=== PATIENT | male | born 1980 | race Caucasian/White ===

== ENCOUNTER 2017-06-24 10:11 | Inpatient (IN) | payer SELFPAY ==
[~2017-06-24] VITALS: Ht 180.3 cm; Wt 77.0 kg
[2017-06-24 10:13] VITALS: BP 133/80; PULSE 106; RESP 20; TEMP 98.9; O2SAT 100
[2017-06-24] MEDS ORDERED: LIDOCAINE HCL 1% 50 ML VIAL INFIL ONE (11:45)
--- NOTE | 2017-06-24 11:45 | PD ---
HPI Chief Complaint: Skin Problem Time Seen by Provider: 11:33 Travel History International Travel<30 days: No Contact w/Intl Traveler<30days: No Traveled to known affect area: No History of Present Illness HPI So 36-year-old man who presents to the emergency department complaining of pain redness and swelling his left arm.A small pimple there couple days ago, he tried to pull He thought it may be staph. Today's arm is 1 up in its erythematous red-hot swollen and very painful. History of staph infection that arm in the past. Denies any other medical problems. No other complaints. He did try to take some leftover antibiotics that he had, Keflex, as well as some pain medicine. History Past Medical History Medical History: Denies Significant Hx Social History Tobacco Use: No Allergies-Medications (Allergen,Severity, Reaction): Coded Allergies: No Known Allergies (Verified Allergy, Unknown, 06/24/17) Review of Systems Except as stated in HPI: all other systems reviewed are Neg Physical Exam Narrative GENERAL: Well-appearing 36 year-old man, appears uncomfortable nontoxic. SKIN: Focused skin assessment warm/dry. CARDIOVASCULAR: Regular rate and rhythm. No murmur appreciated. RESPIRATORY: No accessory muscle use. Clear to auscultation. Breath sounds equal bilaterally. GASTROINTESTINAL: Abdomen soft, non-tender, nondistended. Hepatic and splenic margins not palpable. MUSCULOSKELETAL: Significant erythema and swelling with induration in the left arm especially about the medial aspect of the elbow and into the distal brachium. There is an area of fluctuance in the central area. There is no purulent drainage. Data Data Last Documented VS Vital Signs Date Time Temp Pulse Resp B/P (MAP) Pulse Ox O2 Delivery O2 Flow Rate FiO2 06/24/17 12:36 18 06/24/17 10:13 98.9 106 133/80 (97) 100 Room Air Orders Orders Wound Culture And Gram Stain (06/24/17 11:39) Ed Poc Ultrasound (06/24/17 ) Lidocaine 1% Inj (50 Ml) (Xylocaine 1% I (06/24/17 11:45) Fentanyl Inj (Fentanyl Inj) (06/24/17 11:39) Complete Blood Count With Diff (06/24/17 12:18) Comprehensive Metabolic Panel (06/24/17 12:18) Iv Access Insert/Monitor (06/24/17 12:18) Hydromorphone Pf Inj (Dilaudid Pf Inj) (06/24/17 12:30) Vancomycin Inj (Vancomycin Inj) (06/24/17 12:30) Levofloxacin 750 Mg Premix Inj (Levaquin (06/24/17 12:30) Doxycycline Inj (Vibramycin Inj) (06/24/17 12:30) Admit Order (Ed Use Only) (06/24/17 ) Vital Signs (Adult) Q4H (06/24/17 13:55) Diet Heart Healthy (06/24/17 Lunch) Activity Oob With Assistance (06/24/17 13:55) Notify Dr: Other (06/24/17 13:55) Labs Laboratory Tests Test 06/24/17 12:30 White Blood Count 22.2 TH/MM3 Red Blood Count 4.19 MIL/MM3 Hemoglobin 12.5 GM/DL Hematocrit 37.2 % Mean Corpuscular Volume 88.7 FL Mean Corpuscular Hemoglobin 29.9 PG Mean Corpuscular Hemoglobin Concent 33.7 % Red Cell Distribution Width 13.7 % Platelet Count 422 TH/MM3 Mean Platelet Volume 8.6 FL Neutrophils (%) (Auto) 79.1 % Lymphocytes (%) (Auto) 7.3 % Monocytes (%) (Auto) 11.5 % Eosinophils (%) (Auto) 1.7 % Basophils (%) (Auto) 0.4 % Neutrophils # (Auto) 17.5 TH/MM3 Lymphocytes # (Auto) 1.6 TH/MM3 Monocytes # (Auto) 2.6 TH/MM3 Eosinophils # (Auto) 0.4 TH/MM3 Basophils # (Auto) 0.1 TH/MM3 CBC Comment AUTO DIFF Differential Total Cells Counted 100 Neutrophils % (Manual) 67 % Band Neutrophils % 14 % Lymphocytes % 8 % Monocytes % 9 % Eosinophils % 2 % Neutrophils # (Manual) 18.0 TH/MM3 Differential Comment FINAL DIFF MANUAL Platelet Estimate HIGH Platelet Morphology Comment NORMAL Blood Urea Nitrogen 7 MG/DL Creatinine 0.72 MG/DL Random Glucose 82 MG/DL Total Protein 7.7 GM/DL Albumin 2.9 GM/DL Calcium Level 8.9 MG/DL Alkaline Phosphatase 153 U/L Aspartate Amino Transf (AST/SGOT) 19 U/L Alanine Aminotransferase (ALT/SGPT) 23 U/L Total Bilirubin 0.7 MG/DL Sodium Level 134 MEQ/L Potassium Level 3.4 MEQ/L Chloride Level 99 MEQ/L Carbon Dioxide Level 26.2 MEQ/L Anion Gap 9 MEQ/L Estimat Glomerular Filtration Rate 123 ML/MIN [facility] Medical Decision Making Medical Screen Exam Complete: Yes Emergency Medical Condition: Yes Interpretation(s) LABS: CBC remarkable for leukocytosis. Differential Diagnosis Abscess, DVT, cellulitis, other Narrative Course Medical decision making 36-year-old man presents with cellulitis and abscess to the left arm. We'll confirm drainable fluid collection, I&D at the bedside, antibiotics and pain medication. Procedures Procedure Narrative INCISION AND DRAINAGE OF ABSCESS: The area was prepped and was sterilely draped. A subcutaneous wheal of % Xylocaine 1 with a total number 5 mL was used to anesthetize the area. The area was properly anesthetized. A number 11 scalpel was used to make a 3-cm incision across the area of the abscess. Copious malodorous drainage was expressed. Cultures were obtained. The abscess was drained an irrigated with normal saline. Half-inch packing was placed. Diagnosis Primary Impression: Abscess Admitting Information Admitting Physician Requests: Admit Charbel Gonzalez MD Jun 24, 2017 11:44
[2017-06-24] MEDS ORDERED: VANCOMYCIN INJ 1,500 MG in SODIUM CHLORID 0.9% 500 ML INJ 500 ML IV ONE (12:30)
[2017-06-24] MEDS ORDERED: HYDROmorphone HCL PF 1 MG/ML VIAL IV PUSH ONE (12:30)
[2017-06-24] MEDS ORDERED: DOXYCYCLINE INJ 100 MG in SODIUM CHLORIDE 0.9% INJ 100 ML IV ONE (12:30)
[2017-06-24] MEDS ORDERED: LEVOFLOXACIN 750 MG PREMIX INJ 150 ML IV ONE (12:30)
[2017-06-24 13:22] LABS: AUTOMATED NEUTROPHIL # 17.5 TH/MM3 (1.8-7.7); BASOPHIL # 0.1 TH/MM3 (0-0.2); BASOPHIL % 0.4 % (0.0-2.0); EOSINOPHIL # 0.4 TH/MM3 (0-0.4); EOSINOPHIL % 1.7 % (0.0-4.0); HEMATOCRIT 37.2 % (39.0-51.0); LYMPH % 7.3 % (9.0-44.0); LYMPHOCYTE # 1.6 TH/MM3 (1.0-4.8); MEAN CELL VOLUME 88.7 FL (80.0-100.0); MEAN CORPUSCULAR HEMOGLOBIN 29.9 PG (27.0-34.0); MEAN CORPUSCULAR HGB CONC 33.7 % (32.0-36.0); MONO % 11.5 % (0.0-8.0); NEUT % 79.1 % (16.0-70.0); PLATELET COUNT 422 TH/MM3 (150-450); RED BLOOD COUNT 4.19 MIL/MM3 (4.50-5.90); RED CELL DISTRIBUTION WIDTH 13.7 % (11.6-17.2); WHITE BLOOD COUNT 22.2 TH/MM3 (4.0-11.0)
[2017-06-24 13:30] LABS: HEMO FLAGS AUTO DIFF
[2017-06-24 13:45] LABS: ALT (GPT) 23 U/L (12-78); ANION GAP 9 MEQ/L (5-15); AST (GOT) 19 U/L (15-37); BICARBONATE 26.2 MEQ/L (21.0-32.0); BLOOD UREA NITROGEN 7 MG/DL (7-18); CHLORIDE 99 MEQ/L (98-107); GLOMERULAR FILTRATION RATE 123 ML/MIN (>89); POTASSIUM 3.4 MEQ/L (3.5-5.1); SODIUM (NA) 134 MEQ/L (136-145)
[2017-06-24 13:47] LABS: ALKALINE PHOSPHATASE 153 U/L (45-117); TOTAL BILIRUBIN ADULT 0.7 MG/DL (0.2-1.0)
[2017-06-24 13:52] LABS: BANDS 14 % (0-6); EOSINOPHILS 2 % (0-4); POLYS (SEG NEUTROPHILS) 67 % (16-70); WBC DIFF SAMPLE 100
[2017-06-24 13:53] LABS: PLATELET ESTIMATE SMEAR HIGH (NORMAL)
[2017-06-24 13:55] LABS: PLATELET MORPHOLOGY NORMAL (NORMAL); SCAN/DIFF FINAL DIFF MANUAL
[2017-06-24 13:57] VITALS: BP 143/74; PULSE 101; RESP 18; O2SAT 97
[2017-06-24] MEDS ORDERED: MAGNESIUM HYDROXIDE SUSP 30 ML CUP PO PRN (14:00)
[2017-06-24] MEDS ORDERED: ONDANSETRON HCL 4 MG/2 ML VIAL IVP PRN (14:00)
[2017-06-24] MEDS ORDERED: ACETAMINOPHEN/HYDROcodone 325 MG/10 MG TAB PO PRN (14:00)
[2017-06-24] MEDS ORDERED: NALOXONE HCL 0.4 MG/ML AMP IV PUSH PRN (14:00)
[2017-06-24] MEDS ORDERED: ACETAMINOPHEN/HYDROcodone 325 MG/5 MG TAB PO PRN (14:00)
[2017-06-24] MEDS ORDERED: SODIUM CHLORIDE 0.9% FLUSH 10 ML FLUSH IV FLUSH PRN (14:00)
[2017-06-24] MEDS: SODIUM CHLOR 0.9% 1000 ML INJ 1,000 ML IV SCH ×2 (15:39→21:47)
[2017-06-24] MEDS: ENOXAPARIN SODIUM 40 MG/0.4 ML SYRINGE SQ SCH (15:43)
[2017-06-24] MEDS ORDERED: oxyCODONE/ACETAMINOPHEN 5 MG/325 MG TAB PO PRN (15:45)
--- NOTE | 2017-06-24 15:47 | HHI.HP ---
[facility] No Primary Care Physician Admission Diagnosis cellulitis Diagnoses: (1) Abscess Travel History International Travel<30 Days: No Contact w/Intl Traveler <30 Da: No Traveled to Known Affected Are: No History of Present Illness Mr. Nickerson is a 36-year-old male. She came in secondary to left arm abscess. He says that he's been working with his grandparents to fix her home [place] and he's been working in the water to build a retaining wall. He noticed a pimple which developed on his left arm about 4 days ago. 3 days ago he tried to drain it with a needle at home. Ever since then has been accelerating in regards to heat, erythema, and swelling. She noticed swelling down to his hand this morning so he came into the emergency department. In the emergency department he had an I&D performed which drained greater than one cup of purulent material. He feels like she might still have a axillary abscess. No IV drug abuse presently and no history of IV drug abuse. Review of Systems Constitutional: DENIES: Fever, Chills, Night Sweats Eyes: DENIES: Blurred vision, Diplopia, Eye inflammation, Eye pain Ears, nose, mouth, throat: DENIES: Tinnitus, Hearing loss, Vertigo, Nasal discharge Respiratory: DENIES: Apneas, Cough, Wheezing, Shortness of breath Cardiovascular: DENIES: Chest pain, Palpitations, Syncope Gastrointestinal: DENIES: Abdominal pain, Black stools, Bloody stools Genitourinary: DENIES: Sexual dysfunction, Urinary frequency, Urinary incontinence Musculoskeletal: COMPLAINS OF: Joint pain, Stiffness Integumentary: COMPLAINS OF: Abnormal pigmentation Hematologic/lymphatic: COMPLAINS OF: Lymphadenopathy, DENIES: Bruising Immunologic/allergic: DENIES: Eczema, Urticaria Neurologic: DENIES: Abnormal gait, Headache, Paresthesias Psychiatric: DENIES: Anxiety, Confusion, Hallucinations Past Family Social History Past Medical History Prior history of staph infection (small, delt with at home) History of head injury, basal injury, 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 HEAD: Normocephalic. EYES: No scleral icterus. No injection or drainage. NECK: Supple, trachea midline. No JVD or lymphadenopathy. CARDIOVASCULAR: Regular rate and rhythm without murmurs, gallops, or rubs. RESPIRATORY: Breath sounds equal bilaterally. No accessory muscle use. GASTROINTESTINAL: Abdomen soft, non-tender, nondistended. MUSCULOSKELETAL: No cyanosis, or edema. His left arm is bandaged now, but has significant edema and induration and edema around his elbow (status post I&D with biceps laceration) BACK: Nontender without obvious deformity. No CVA tenderness. Laboratory Laboratory Tests Test 06/24/17 12:30 White Blood Count 22.2 Red Blood Count 4.19 Hemoglobin 12.5 Hematocrit 37.2 Mean Corpuscular Volume 88.7 Mean Corpuscular Hemoglobin 29.9 Mean Corpuscular Hemoglobin Concent 33.7 Red Cell Distribution Width 13.7 Platelet Count 422 Mean Platelet Volume 8.6 Neutrophils (%) (Auto) 79.1 Lymphocytes (%) (Auto) 7.3 Monocytes (%) (Auto) 11.5 Eosinophils (%) (Auto) 1.7 Basophils (%) (Auto) 0.4 Neutrophils # (Auto) 17.5 Lymphocytes # (Auto) 1.6 Monocytes # (Auto) 2.6 Eosinophils # (Auto) 0.4 Basophils # (Auto) 0.1 CBC Comment AUTO DIFF Differential Total Cells Counted 100 Neutrophils % (Manual) 67 Band Neutrophils % 14 Lymphocytes % 8 Monocytes % 9 Eosinophils % 2 Neutrophils # (Manual) 18.0 Differential Comment FINAL DIFF MANUAL Platelet Estimate HIGH Platelet Morphology Comment NORMAL Blood Urea Nitrogen 7 Creatinine 0.72 Random Glucose 82 Total Protein 7.7 Albumin 2.9 Calcium Level 8.9 Alkaline Phosphatase 153 Aspartate Amino Transf (AST/SGOT) 19 Alanine Aminotransferase (ALT/SGPT) 23 Total Bilirubin 0.7 Sodium Level 134 Potassium Level 3.4 Chloride Level 99 Carbon Dioxide Level 26.2 Anion Gap 9 Estimat Glomerular Filtration Rate 123 Date/Time Source Procedure Growth Status 06/24/17 12:30 Wound Arm Gram Stain Pending Received 06/24/17 12:30 Wound Arm Wound Culture Pending Received Result Diagram: 06/24/17 1230 06/24/17 1230 Septic Shock Reassessment Heart: Regular rate and rhythm Lungs: Clear Skin: Warm Peripheral Pulses: Bounding Right Radial Bounding Left Radial Bounding Right Posterior Tibial Bounding Left Posterior Tibial Capillary Refill: Brisk Caprini VTE Risk Assessment Caprini VTE Risk Assessment: No/Low Risk (score <= 1) Caprini Risk Assessment Model Point Value = 1 Point Value = 2 Point Value = 3 Point Value = 5 Age 41-60 Minor surgery BMI > 25 kg/m2 Swollen legs Varicose veins or History of unexplained or recurrent spontaneous Oral contraceptives or hormone replacement Sepsis (< 1 month) Serious lung disease, including pneumonia (< 1 month) Abnormal pulmonary function Acute myocardial infarction Congestive heart failure (< 1 month) History of inflammatory bowel disease Medical patient at bed rest Age 61-74 Arthroscopic surgery Major open surgery (> 45 min) Laparoscopic surgery (> 45 min) Malignancy Confined to bed (> 72 hours) Immobilizing plaster cast Central venous access Age >= 75 History of VTE Family history of VTE Factor V Leiden Prothrombin [id number] Lupus anticoagulant Anticardiolipin antibodies Elevated serum homocysteine Heparin-induced thrombocytopenia Other congenital or acquired thrombophilia Stroke (< 1 month) Elective arthroplasty Hip, pelvis, or leg fracture Acute spinal cord injury (< 1 month) Prophylaxis Regimen Total Risk Factor Score Risk Level Prophylaxis Regimen 0-1 Low Early ambulation 2 Moderate Order ONE of the following: *Sequential Compression Device (SCD) *Heparin 5000 units SQ BID 3-4 Higher Order ONE of the following medications: *Heparin 5000 units SQ TID *Enoxaparin/Lovenox 40 mg SQ daily (WT < 150 kg, CrCl > 30 mL/min) *Enoxaparin/Lovenox 30 mg SQ daily (WT < 150 kg, CrCl > 10-29 mL/min) *Enoxaparin/Lovenox 30 mg SQ BID (WT < 150 kg, CrCl > 30 mL/min) AND/OR *Sequential Compression Device (SCD) 5 or more Highest Order ONE of the following medications: *Heparin 5000 units SQ TID (Preferred with Epidurals) *Enoxaparin/Lovenox 40 mg SQ daily (WT < 150 kg, CrCl > 30 mL/min) *Enoxaparin/Lovenox 30 mg SQ daily (WT < 150 kg, CrCl > 10-29 mL/min) *Enoxaparin/Lovenox 30 mg SQ BID (WT < 150 kg, CrCl > 30 mL/min) AND *Sequential Compression Device (SCD) Assessment and Plan Problem List: (1) Abscess ICD Code: L02.91 - Cutaneous abscess, unspecified Status: Acute Assessment and Plan Assessment and Plan 36 year old male admitted with sepsis secondary to left arm abscess and cellulitis. Left Arm Abscess Left Arm Cellulitis Developed with prolonged exposure in salty muddy senior Risk for Vibrio as a cause Vancomycin Doxycycline Levaquin Probiotics ID consult Follow wound cultures Sepsis IV Hydration Follow on telemetry Follow CBC Monitor vitals Treat infection DVT Prophylaxis Lovenox Physician Certification 2 Midnight Certification Type: Admission for Inpatient Services Order for Inpatient Services The services are ordered in accordance with Medicare regulations or non- Medicare payer requirements, as applicable. In the case of services not specified as inpatient-only, they are appropriately provided as inpatient services in accordance with the 2-midnight benchmark. Estimated LOS (days): 2 days is the estimated time the patient will need to remain in the hospital, assuming treatment plan goals are met and no additional complications. Post-Hospital Plan: Home Harvey Price MD Jun 24, 2017 15:47
[2017-06-24] MEDS ORDERED: NICOTINE 21 MG/24 HR PATCH T-DERMAL ONE (16:00)
[2017-06-24 16:10] VITALS: BP 128/74
[2017-06-24] MEDS: oxyCODONE/ACETAMINOPHEN 10 MG/325 MG TAB PO PRN ×2 (16:12→20:06)
[2017-06-24 17:15] VITALS: BP 121/78; PULSE 101; RESP 19; TEMP 100.2; O2SAT 96
[2017-06-24] MEDS ORDERED: Vancomycin Consult Pharmacy 1 EA OTHER SCH (17:30)
[2017-06-24] MEDS: HYDROmorphone HCL PF 2 MG/ML VIAL IV PUSH PRN ×2 (17:36→21:46)
[2017-06-24 19:59] VITALS: PULSE 101
[2017-06-24 20:00] VITALS: BP 127/75; PULSE 97; RESP 18; TEMP 99.6; O2SAT 100
[2017-06-24] MEDS: SODIUM CHLORIDE 0.9% FLUSH 10 ML FLUSH IV FLUSH SCH (20:07)
[2017-06-24] MEDS: LACTOBACILLUS ACIDOPHILUS TAB PO SCH (20:07)
[2017-06-25] VITALS (7 sets, daily range): BP systolic 118–156; BP diastolic 62–93; PULSE 78–103; RESP 16–20; TEMP 97.7–99.4; O2SAT 94–100
[2017-06-25] MEDS: oxyCODONE/ACETAMINOPHEN 10 MG/325 MG TAB PO PRN ×6 (00:29→21:46)
[2017-06-25] MEDS: VANCOMYCIN INJ 1,000 MG in SODIUM CHLOR 0.9% 250 ML INJ 250 ML IV SCH ×4 (00:29→23:47)
[2017-06-25] MEDS: HYDROmorphone HCL PF 2 MG/ML VIAL IV PUSH PRN ×3 (01:50→14:36)
[2017-06-25] MEDS: DOXYCYCLINE INJ 200 MG in SODIUM CHLOR 0.9% 250 ML INJ 250 ML IV SCH ×2 (01:51→14:35)
[2017-06-25] MEDS ORDERED: KETOROLAC TROMETHAMINE 30 MG/ML (IVP) VIAL IV PUSH ONE (06:15)
[2017-06-25 08:27] LABS: BASOPHIL # 0.1 TH/MM3 (0-0.2); BASOPHIL % 0.5 % (0.0-2.0); EOSINOPHIL # 0.3 TH/MM3 (0-0.4); EOSINOPHIL % 2.2 % (0.0-4.0); HEMATOCRIT 29.4 % (39.0-51.0); HEMO FLAGS DIFF FINAL; LYMPH % 11.1 % (9.0-44.0); LYMPHOCYTE # 1.7 TH/MM3 (1.0-4.8); MEAN CELL VOLUME 88.9 FL (80.0-100.0); MEAN CORPUSCULAR HEMOGLOBIN 29.7 PG (27.0-34.0); MEAN CORPUSCULAR HGB CONC 33.4 % (32.0-36.0); NEUT % 76.2 % (16.0-70.0); PLATELET COUNT 341 TH/MM3 (150-450); RED BLOOD COUNT 3.31 MIL/MM3 (4.50-5.90); RED CELL DISTRIBUTION WIDTH 13.5 % (11.6-17.2); WHITE BLOOD COUNT 15.7 TH/MM3 (4.0-11.0)
--- NOTE | 2017-06-25 08:34 | HHI.PR ---
Subjective Remarks Had fever last night , also chills. Says swelling in the arm decreased some, has significant pain in his arm and underarm. Says dialudid doesn't help much and lasts just for 1.5 hrs. No n/v/d/c. Eating but not much. Objective Vitals Vital Signs Date Time Temp Pulse Resp B/P (MAP) Pulse Ox O2 Delivery O2 Flow Rate FiO2 06/25/17 04:00 99.4 87 18 137/75 (95) 100 06/25/17 00:48 98.3 96 18 156/93 (114) 94 06/24/17 20:00 99.6 97 18 127/75 (92) 100 06/24/17 19:59 101 06/24/17 17:30 18 06/24/17 17:15 100.2 101 19 121/78 (92) 96 06/24/17 16:10 82 18 128/74 (92) 98 06/24/17 14:00 18 06/24/17 13:57 101 18 143/74 (97) 97 Room Air 06/24/17 12:36 18 06/24/17 10:13 98.9 106 20 133/80 (97) 100 Room Air I/O 06/24/17 06/24/17 06/24/17 06/25/17 06/25/17 06/25/17 06:59 14:59 22:59 06:59 14:59 22:59 Intake Total 150 ml 1270 ml 830 ml Balance 150 ml 1270 ml 830 ml Intake IV Total 150 ml 1270 ml 830 ml # Voids 2 Result Diagram: 06/24/17 1230 06/24/17 1230 Objective Remarks GENERAL: 36 yo male, in bed, appears in some distress 2/2 pain in his left arm. CARDIOVASCULAR: Regular rate and rhythm without murmurs, gallops, or rubs. RESPIRATORY: Breath sounds equal bilaterally. No accessory muscle use. GASTROINTESTINAL: Abdomen soft, non-tender, nondistended. MUSCULOSKELETAL: No cyanosis, or edema LE. His left arm is bandaged now, edema and induration around his elbow imprpved, + axilar LAD (status post I&D with biceps laceration). BACK: Nontender without obvious deformity. No CVA tenderness. A/P Problem List: (1) Abscess ICD Code: L02.91 - Cutaneous abscess, unspecified Status: Acute Assessment and Plan 36 year old male admitted with sepsis secondary to left arm abscess and cellulitis. Left Arm Abscess Left Arm Cellulitis Developed with prolonged exposure in salty muddy senior Risk for Vibrio as a cause Vancomycin Doxycycline Levaquin Probiotics ID consulted and ff. Discussed with Dr Brooks ID specialist, will consult also ortho for evaluation Follow wound cultures Sepsis ( leukocytosis, tachycardia on admission, source cellulitis). Improving. IV Hydration Follow on telemetry Follow CBC Monitor vitals Treat infection Hyponatremia, mild. Corrected with IVF. Monitor Na Hypokalemia: replaced. Monitor and replace as need. DVT Prophylaxis Lovenox Discussed with the patient and the nurse. Triny Shepard MD Jun 25, 2017 08:34
[2017-06-25] MEDS: LACTOBACILLUS ACIDOPHILUS TAB PO SCH ×3 (08:47→17:38)
[2017-06-25] MEDS: NICOTINE 21 MG/24 HR PATCH T-DERMAL SCH (08:48)
[2017-06-25] MEDS: REMOVE OLD PATCH T-DERMAL SCH (08:48)
[2017-06-25] MEDS: SODIUM CHLORIDE 0.9% FLUSH 10 ML FLUSH IV FLUSH SCH ×2 (08:49→21:00)
[2017-06-25 08:57] LABS: ALT (GPT) 19 U/L (12-78); ANION GAP 8 MEQ/L (5-15); AST (GOT) 17 U/L (15-37); BICARBONATE 23.5 MEQ/L (21.0-32.0); BLOOD UREA NITROGEN 8 MG/DL (7-18); CHLORIDE 105 MEQ/L (98-107); GLOMERULAR FILTRATION RATE 161 ML/MIN (>89); POTASSIUM 3.4 MEQ/L (3.5-5.1); SODIUM (NA) 136 MEQ/L (136-145)
[2017-06-25 09:01] LABS: ALKALINE PHOSPHATASE 126 U/L (45-117); TOTAL BILIRUBIN ADULT 0.4 MG/DL (0.2-1.0)
[2017-06-25] MEDS: SODIUM CHLOR 0.9% 1000 ML INJ 1,000 ML IV SCH ×2 (09:55→19:55)
[2017-06-25] MEDS ORDERED: LEVOFLOXACIN 750 MG PREMIX INJ 150 ML IV SCH (13:00)
[2017-06-25] MEDS: ENOXAPARIN SODIUM 40 MG/0.4 ML SYRINGE SQ SCH (14:35)
--- NOTE | 2017-06-25 17:49 | PD.ID.CON ---
History of Present Illness Service ID Consult Requested By Dr Price Reason for Consult LUE infection Primary Care Physician No Primary Care Physician Diagnoses: History of Present Illness 36 yo male denies IVDU sustaine abrasion 10 days [place] and noted to have worsening swelling and pain and redness about 1 week ago She also developped high grade fevers and shaking chills Had leukocytosis of 22 K and bands 14 % Presented to the hospital yday with above smx, worse and had bedside I+D of the abscess Large amount of pus was expressed He thinks his pain got better since Review of Systems Except as stated in HPI: all other systems reviewed are Neg Past Family Social History Allergies: Coded Allergies: No Known Allergies (Verified Allergy, Unknown, 06/24/17) Active Ordered Medications Medications where reviewed in EMR Antibiotics Include: levaquine doxy vancio Physical Exam Vital Signs Vital Signs Date Time Temp Pulse Resp B/P (MAP) Pulse Ox O2 Delivery O2 Flow Rate FiO2 06/25/17 16:00 97.8 93 18 140/84 (102) 98 06/25/17 12:00 97.7 78 18 121/67 (85) 95 06/25/17 08:00 98.3 78 16 118/62 (80) 96 06/25/17 04:00 99.4 87 18 137/75 (95) 100 06/25/17 00:48 98.3 96 18 156/93 (114) 94 06/24/17 20:00 99.6 97 18 127/75 (92) 100 06/24/17 19:59 101 Physical Exam CONSTITUTIONAL/GENERAL: This is an adequately nourished patient, in no apparent distress. TUBES/LINES/DRAINS: SKIN: No jaundice, rashes, or lesions. Skin temperature appropriate. Not diaphoretic. HEAD: Atraumatic. Normocephalic. EYES: Pupils equal and round and reactive. Extraocular motions intact. No scleral icterus. No injection or drainage. Fundi not examined. ENT: Hearing grossly normal. Nose without bleeding or purulent drainage. Jessica mucosae without visible erythema, exudates, masses, or lesions. NECK: Trachea midline. Supple, nontender. CARDIOVASCULAR: Regular rate and rhythm without murmurs, gallops, or rubs. No JVD. Peripheral pulses symmetric. RESPIRATORY/CHEST: Symmetric, unlabored respirations. Clear to auscultation. Breath sounds equal bilaterally. No wheezes, rales, or rhonchi. GASTROINTESTINAL: Abdomen soft, non-tender, nondistended. No hepato-splenomegaly , or palpable masses. No guarding. Bowel sounds present. GENITOURINARY: Without palpable bladder distension. MUSCULOSKELETAL: Extremities without clubbing, cyanosis, or edema RUE and BLE. No joint tenderness or effusion noted. No calf tenderness. No mottling or clubbing. STATUS LOCALIS: L upper arm with a large wound ventrally, draining odorless pus mixed with blood + erythema, induration, swelling wound is packed Erye=thema expands to the axillae area LYMPHATICS: No palpable cervical or supraclavicular adenopathy. NEUROLOGICAL: Awake and alert. Motor and sensory grossly within normal limits. Follows commands. Clear speech. Moves all extremities. PSYCHIATRIC: No obvious anxiety/depression. no apparent hallucinations or other psychotic thought process. Laboratory Laboratory Tests Test 06/25/17 06:59 White Blood Count 15.7 Red Blood Count 3.31 Hemoglobin 9.8 Hematocrit 29.4 Mean Corpuscular Volume 88.9 Mean Corpuscular Hemoglobin 29.7 Mean Corpuscular Hemoglobin Concent 33.4 Red Cell Distribution Width 13.5 Platelet Count 341 Mean Platelet Volume 8.4 Neutrophils (%) (Auto) 76.2 Lymphocytes (%) (Auto) 11.1 Monocytes (%) (Auto) 10.0 Eosinophils (%) (Auto) 2.2 Basophils (%) (Auto) 0.5 Neutrophils # (Auto) 12.0 Lymphocytes # (Auto) 1.7 Monocytes # (Auto) 1.6 Eosinophils # (Auto) 0.3 Basophils # (Auto) 0.1 CBC Comment DIFF FINAL Differential Comment Blood Urea Nitrogen 8 Creatinine 0.57 Random Glucose 90 Total Protein 6.0 Albumin 2.3 Calcium Level 8.4 Alkaline Phosphatase 126 Aspartate Amino Transf (AST/SGOT) 17 Alanine Aminotransferase (ALT/SGPT) 19 Total Bilirubin 0.4 Sodium Level 136 Potassium Level 3.4 Chloride Level 105 Carbon Dioxide Level 23.5 Anion Gap 8 Estimat Glomerular Filtration Rate 161 Date/Time Source Procedure Growth Status 06/24/17 12:30 Wound Arm Gram Stain - Final Resulted 06/24/17 12:30 Wound Arm Wound Culture - Preliminary IMMATURE GROWTH - REINCUBATE Resulted Result Diagram: 06/25/17 0659 06/25/17 0659 Assessment and Plan Assessment and Plan Abscess wiith phlegmone and cellulitis of LUE, mixed emilia + salt water exposure cont marito justin [facility] Varsha Wayne MD Jun 25, 2017 17:48
[2017-06-25] MEDS: KETOROLAC TROMETHAMINE 30 MG/ML (IVP) VIAL IV PUSH PRN (18:53)
[2017-06-25] MEDS: MORPHINE SULFATE 2 MG/ML INJ IM PRN ×2 (19:28→23:34)
[2017-06-25] MEDS: PIPERACIL-TAZO 3.375 GM PREMIX 50 ML IV SCH (20:44)
[2017-06-25] MEDS ORDERED: PHARMACY ORDERED LAB ONE (23:45)
[2017-06-26] VITALS: BP 129/75; PULSE 80; RESP 20; TEMP 97.3; O2SAT 100
[2017-06-26] MEDS: DOXYCYCLINE INJ 200 MG in SODIUM CHLOR 0.9% 250 ML INJ 250 ML IV SCH (01:43)
[2017-06-26] MEDS: PIPERACIL-TAZO 3.375 GM PREMIX 50 ML IV SCH ×4 (01:43→17:44)
[2017-06-26] MEDS: oxyCODONE/ACETAMINOPHEN 10 MG/325 MG TAB PO PRN ×5 (01:44→19:46)
[2017-06-26] MEDS: KETOROLAC TROMETHAMINE 30 MG/ML (IVP) VIAL IV PUSH PRN ×3 (03:37→17:53)
[2017-06-26] MEDS: MORPHINE SULFATE 2 MG/ML INJ IM PRN ×5 (03:37→20:52)
[2017-06-26] MEDS: SODIUM CHLOR 0.9% 1000 ML INJ 1,000 ML IV SCH ×3 (05:55→22:04)
[2017-06-26 08:00] VITALS: BP 103/54; PULSE 76; RESP 15; TEMP 96.9; O2SAT 96
[2017-06-26] MEDS ORDERED: VANCOMYCIN INJ 1,250 MG in SODIUM CHLOR 0.9% 250 ML INJ 250 ML IV SCH (08:00)
[2017-06-26] MEDS: SODIUM CHLORIDE 0.9% FLUSH 10 ML FLUSH IV FLUSH SCH ×2 (09:00→21:00)
[2017-06-26] MEDS: REMOVE OLD PATCH T-DERMAL SCH (09:00)
[2017-06-26] MEDS: NICOTINE 21 MG/24 HR PATCH T-DERMAL SCH (09:03)
[2017-06-26] MEDS: LACTOBACILLUS ACIDOPHILUS TAB PO SCH ×3 (09:04→18:00)
--- NOTE | 2017-06-26 13:47 | HHI.IDPN ---
Subjective Subjective Remarks co pain L upper arm no fever Antibiotics zosyn vanco doxy levaquine Allergies: Coded Allergies: No Known Allergies (Verified Allergy, Unknown, 06/24/17) Objective . Vital Signs Date Time Temp Pulse Resp B/P (MAP) Pulse Ox O2 Delivery O2 Flow Rate FiO2 06/26/17 08:00 96.9 76 15 103/54 (70) 96 06/26/17 00:00 97.3 80 20 129/75 (93) 100 06/25/17 20:28 103 06/25/17 20:00 98.5 92 20 130/77 (94) 97 06/25/17 16:00 97.8 93 18 140/84 (102) 98 . Laboratory Tests Test 06/25/17 06:59 White Blood Count 15.7 TH/MM3 Red Blood Count 3.31 MIL/MM3 Hemoglobin 9.8 GM/DL Hematocrit 29.4 % Mean Corpuscular Volume 88.9 FL Mean Corpuscular Hemoglobin 29.7 PG Mean Corpuscular Hemoglobin Concent 33.4 % Red Cell Distribution Width 13.5 % Platelet Count 341 TH/MM3 Mean Platelet Volume 8.4 FL Neutrophils (%) (Auto) 76.2 % Lymphocytes (%) (Auto) 11.1 % Monocytes (%) (Auto) 10.0 % Eosinophils (%) (Auto) 2.2 % Basophils (%) (Auto) 0.5 % Neutrophils # (Auto) 12.0 TH/MM3 Lymphocytes # (Auto) 1.7 TH/MM3 Monocytes # (Auto) 1.6 TH/MM3 Eosinophils # (Auto) 0.3 TH/MM3 Basophils # (Auto) 0.1 TH/MM3 CBC Comment DIFF FINAL Differential Comment Laboratory Tests Test 06/25/17 06:59 Blood Urea Nitrogen 8 MG/DL Creatinine 0.57 MG/DL Random Glucose 90 MG/DL Total Protein 6.0 GM/DL Albumin 2.3 GM/DL Calcium Level 8.4 MG/DL Alkaline Phosphatase 126 U/L Aspartate Amino Transf (AST/SGOT) 17 U/L Alanine Aminotransferase (ALT/SGPT) 19 U/L Total Bilirubin 0.4 MG/DL Sodium Level 136 MEQ/L Potassium Level 3.4 MEQ/L Chloride Level 105 MEQ/L Carbon Dioxide Level 23.5 MEQ/L Anion Gap 8 MEQ/L Estimat Glomerular Filtration Rate 161 ML/MIN Microbiology Date/Time Source Procedure Growth Status 06/24/17 12:30 Wound Arm Gram Stain - Final Complete 06/24/17 12:30 Wound Culture - Final Mixed Anaerobes Complete Physical Exam CONSTITUTIONAL/GENERAL: This is an adequately nourished patient, in no apparent distress. TUBES/LINES/DRAINS: SKIN: No jaundice, rashes, or lesions. Skin temperature appropriate. Not diaphoretic. CARDIOVASCULAR: Regular rate and rhythm without murmurs, gallops, or rubs. No JVD. Peripheral pulses symmetric. RESPIRATORY/CHEST: Symmetric, unlabored respirations. Clear to auscultation. Breath sounds equal bilaterally. No wheezes, rales, or rhonchi. GASTROINTESTINAL: Abdomen soft, non-tender, nondistended. MUSCULOSKELETAL: Extremities without clubbing, cyanosis, or edema RUE and BLE. No joint tenderness or effusion noted. No calf tenderness. No mottling or clubbing. STATUS LOCALIS: L upper arm with a large wound ventrally, draining odorless pus mixed with blood + erythema, induration, swelling wound is packed Erye thema and induration expands to the axillae area L forearm and hand seem more edematous NEUROLOGICAL: Awake and alert. Motor and sensory grossly within normal limits. Follows commands. Clear speech. Moves all extremities. PSYCHIATRIC: No obvious anxiety/depression. no apparent hallucinations or other psychotic thought process. Assessment & Plan Remarks Abscess wiith phlegmone and cellulitis of LUE, mixed anaerobs + salt water exposure, no e/o vibrio on cultures cont zosyn -dc doxy - dc levaquijne, vancomycin awaiting surgical evaluation marvin Shepard call placed to Varsha Vincent MD Jun 26, 2017 13:47
--- NOTE | 2017-06-26 14:16 | HHI.PR ---
Subjective Remarks Patient in nad. Denies chest pain or sob. No n/v/d/c. Patient says pain is better controlled now. No fever or chills. Swelling and erythema the same in his arm. Plan for MRI Objective Vitals Vital Signs Date Time Temp Pulse Resp B/P (MAP) Pulse Ox O2 Delivery O2 Flow Rate FiO2 06/26/17 08:00 96.9 76 15 103/54 (70) 96 06/26/17 00:00 97.3 80 20 129/75 (93) 100 06/25/17 20:28 103 06/25/17 20:00 98.5 92 20 130/77 (94) 97 06/25/17 16:00 97.8 93 18 140/84 (102) 98 I/O 06/25/17 06/25/17 06/25/17 06/26/17 06/26/17 06/26/17 07:00 15:00 23:00 07:00 15:00 23:00 Intake Total 830 ml 2169 ml 1480 ml Output Total 500 ml Balance 830 ml 1669 ml 1480 ml Intake Oral 480 ml 480 ml IV Total 830 ml 1689 ml 1000 ml Output Urine Total 500 ml # Voids 2 3 # Bowel Movements 0 0 Result Diagram: 06/25/1759 06/25/17658 Objective Remarks GENERAL: 36 yo male, in bed, appears in some distress 2/2 pain in his left arm. CARDIOVASCULAR: Regular rate and rhythm without murmurs, gallops, or rubs. RESPIRATORY: Breath sounds equal bilaterally. No accessory muscle use. GASTROINTESTINAL: Abdomen soft, non-tender, nondistended. MUSCULOSKELETAL: No cyanosis, or edema LE. His left arm is bandaged now, edema and induration around his elbow imprpved, + axilar LAD (status post I&D with biceps laceration). BACK: Nontender without obvious deformity. No CVA tenderness. A/P Problem List: (1) Abscess ICD Code: L02.91 - Cutaneous abscess, unspecified Status: Acute Assessment and Plan 36 year old male admitted with sepsis secondary to left arm abscess and cellulitis. Left Arm Abscess Left Arm Cellulitis Abscess with phlegmon and cellulitis of LUE, mixed anaerobes. Developed with prolonged exposure in salty muddy senior. Risk for Vibrio as a cause. No eos vibrio on cultures Cont zosyn Dc doxy, Levaquin and vancomycin Awaiting surgical evaluation Probiotics ID consulted and ff. Discussed with Dr Cecilia LUI specialist, will consult also ortho for evaluation. Plan for MRI Follow wound cultures Sepsis ( leukocytosis, tachycardia on admission, source cellulitis). Improving. IV Hydration Follow on telemetry Follow CBC Monitor vitals Treat infection Hyponatremia, mild. Corrected with IVF. Monitor Na Hypokalemia: replaced. Monitor and replace as need. DVT Prophylaxis Lovenox Discussed with the patient and the nurse. Discussed with Triny Cantu MD Jun 26, 2017 14:16
--- NOTE | 2017-06-26 14:50 | PD.ORT.PN ---
Subjective Subjective Remarks Patient admitted due to cellulitis and swelling to left upper arm. Original wound began approximately 12 days ago. 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 He does not remember getting punctured but he does remember a wound beginning just distal to his axilla. It was a white head and he popped it. The next day after he "popped the [place]" he had significant swelling to the biceps and arm. Initially tried antibiotics he had for an abscessed tooth and when this did not resolve it he came to the emergency room. In the emergency room they lanced the abscess and added packing. Orthopedic consult is given to assess extent of infection or abscess is drainable. He denies any numbness or tingling in his fingers Objective Vitals Vital Signs Date Time Temp Pulse Resp B/P (MAP) Pulse Ox O2 Delivery O2 Flow Rate FiO2 06/26/17 08:00 96.9 76 15 103/54 (70) 96 06/26/17 00:00 97.3 80 20 129/75 (93) 100 06/25/17 20:28 103 06/25/17 20:00 98.5 92 20 130/77 (94) 97 06/25/17 16:00 97.8 93 18 140/84 (102) 98 I/O 06/25/17 06/25/17 06/25/17 06/26/17 06/26/17 06/26/17 07:00 15:00 23:00 07:00 15:00 23:00 Intake Total 830 ml 2169 ml 1480 ml Output Total 500 ml Balance 830 ml 1669 ml 1480 ml Intake Oral 480 ml 480 ml IV Total 830 ml 1689 ml 1000 ml Output Urine Total 500 ml # Voids 2 3 # Bowel Movements 0 0 Result Diagram: 06/25/17 0659 06/25/17 0659 Objective Remarks Left upper extremity: There is mild erythema and has swelling of +2 over his bicipital +3 over his forearm. He has packing in the wound over his medial upper arm with mild drainage. He has tenderness to his axilla and lymph nodes as well as through the biceps. He has no tenderness to palpation of the elbow. Elbow range of motion is from 45 to 110. Distally he has intact sensation with good capillary refills. He has full extension and flexion of all fingers. Assessment & Plan Assessment and Plan Cellulitis to left upper arm. Patient states that swelling and pain has decreased but continues to have pain, decreased range of motion and elevated white blood cells. No imaging studies have been done up to this point. An MRI is ordered today to assess possible abscess or lymph node involvement. Once the MRI, is obtained we'll ascertain if there is a drainable abscess and if so, if it is a orthopedic or general surgeons expertise. In the meantime, he will continue on antibiotics and continue with packing of the wound with daily dressing changes. He is to work with physical therapy for range of motion of the shoulder and elbow. He is weightbearing as tolerated. Consult dictated and patient was also seen and examined by Dr. Terrie Houser,Isidro RAMIREZ Jun 26, 2017 14:50
[2017-06-26] MEDS: ENOXAPARIN SODIUM 40 MG/0.4 ML SYRINGE SQ SCH (14:57)
--- NOTE | 2017-06-26 15:08 | MB ---
cc: MARIANO CHANG DATE OF CONSULTATION: 06/26/2017 REASON FOR CONSULTATION Left arm infection. CONSULTING PHYSICIAN Dr. Price. HISTORY OF PRESENT ILLNESS Wilfred Nickerson is a 36-year-old male who presented to the ER with left arm pain and swelling. 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 He was working in brackish water. He did not notice any lacerations or cuts. He began developing redness and pain. He then began developing a significant infection. He presented to the emergency room. He was found to have an abscess along the medial aspect of the right arm. He underwent irrigation and debridement with packing in the emergency department. He has had improvement of pain and swelling since he has been admitted. He has been on IV antibiotics. He denies any drug use. He still has some pain with shoulder and elbow motion. PAST MEDICAL HISTORY ILLNESSES 1. History of staph infection. 2. History of a closed head injury. SURGERIES Craniotomy. ALLERGIES No known drug allergies. MEDICATIONS Please see EMR for complete list of inpatient medications. This was reviewed. FAMILY HISTORY Positive for CVA in the grandfather. SOCIAL HISTORY The patient smokes a pack a day. He denies drug use. He drinks alcohol occasionally. REVIEW OF SYSTEMS The patient denies headache, visual changes, neck pain, chest pain, shortness of breath, abdominal pain, nausea, vomiting, recent weight loss, or numbness or tingling of extremities. He has had some recent fevers and chills. He complains of left arm pain. PHYSICAL EXAMINATION GENERAL: The patient is a well-developed, well-nourished 36-year-old male in no acute distress. He is awake and alert. He is alert and oriented x3. He appears well-developed, well-nourished. VITAL SIGNS: Temperature 96.9, pulse 76, respirations 15, blood pressure 103/54. O2 sat is 96% on room air. HEAD: The patient is normocephalic. Pupils are equal. NECK: Soft, nontender. Trachea is midline. ABDOMEN: Soft, nontender, nondistended. EXTREMITIES: Examination of left arm reveals minimal tenderness around his shoulder. He does have some swelling and fullness around the axillary region. He has a 1 cm open wound with packing and purulent drainage along the mid arm. Elbow range of motion is from 30 degrees up to 90 degrees with minimal discomfort. He has intact sensation in all fingers. He does have moderate swelling of the forearm. The forearm compartments are soft. He has no pain with passive range of motion of his fingers. Sensation is intact in radial, ulnar and median nerve distributions. Skin is intact in the left hand. Examination of right arm reveals no pain with shoulder, elbow or wrist motion. He has intact sensation in all fingers. He has good capillary refill in all fingers. Skin is intact. Radial pulse is palpable. Examination of bilateral lower extremities reveals no pain with hip, knee or ankle motion. Skin is intact. He has intact sensation in both feet. IMPRESSION Left arm infection, status post opening of abscess in the emergency department with packing of wound. PLAN The treatment options were discussed with the patient. At this point I will obtain an MRI of his left arm. The patient may have further fluid collection in the upper arm in the axillary region. The patient will need to be continued on IV antibiotics. The patient may need formal surgical irrigation and debridement on Thursday or Thursday if he does have an abscess. The patient is in agreement with this plan. All questions were answered. A mid-level provider in my office, nurse practitioner or PA, may see this patient on a follow-up basis and continue to implement the objective of this plan including: Starting or adjusting medications, injections of muscle, tendon, bursa or joints, cast application, orthotic or brace application, physical therapy, further radiographic studies including x-ray, MRI, CT, ultrasounds or bone scan, vascular studies, neurologic studies, or other specialist consultations, and proceeding with surgical management as appropriate. MD ADORE Ngo/CURT /2:50 PM /2:58 PM
[2017-06-26 16:00] VITALS: BP 108/75; PULSE 77; RESP 17; TEMP 97.4; O2SAT 97
[2017-06-26] MEDS ORDERED: GADODIAMIDE PF 287 MG/ML 5 ML VIAL (for RAD MRI) IVCONTRAST ONE (19:12)
[2017-06-26 20:00] VITALS: BP 140/79; PULSE 71; RESP 20; TEMP 96.6; O2SAT 99
--- NOTE | 2017-06-26 20:55 | RADRPT ---
EXAM DATE/TIME: 06/26/2017 18:51 [facility] COMPARISON: No previous studies available for comparison. INDICATIONS : Abscess. CONTRAST: 15 cc Omniscan (gadodiamide) IV MEDICAL HISTORY : None. SURGICAL HISTORY : Craniotomy. Brain blood clot removal. ENCOUNTER: Initial ACUITY: 1 day PAIN SCORE: 5/10 LOCATION: Left ARM TECHNIQUE: Multiplanar multisequence MRI examination of the humerus was performed with an d without contrast. FINDINGS: Along the anterior of the soft tissues proximal junction of the mid and distal one thir ds of the arm there is a 1 cm wide and 1 cm deep discontinuity of the skin and subcutaneous tissues w ith edema and enhancement inflammatory change extending along this region down to the bony cortex wit hout any definite evidence of a fluid collection or abscess. CONCLUSION: Cutaneous disruption 1 cm wide 1 cm deep at the junction of the middle one third and distal one thirds of the arm. There is edema and enhancing inflammatory change extending deep into th e soft tissues and a linear strand abutting the bony cortex of the humerus. No evidence of organized fluid collection or abscess formation Rian Mcguire MD on June 26, 2017 at 20:49 Board Certified Radiologist. This report was verified electronically.
[2017-06-26 21:00] VITALS: PULSE 60
[2017-06-27] VITALS (7 sets, daily range): BP systolic 116–147; BP diastolic 76–91; PULSE 60–87; RESP 17–18; TEMP 96.7–97.9; O2SAT 97–100
[2017-06-27] MEDS: oxyCODONE/ACETAMINOPHEN 10 MG/325 MG TAB PO PRN ×5 (00:21→17:43)
[2017-06-27] MEDS: KETOROLAC TROMETHAMINE 30 MG/ML (IVP) VIAL IV PUSH PRN ×4 (00:22→17:42)
[2017-06-27] MEDS: PIPERACIL-TAZO 3.375 GM PREMIX 50 ML IV SCH ×4 (00:23→17:43)
[2017-06-27] MEDS: MORPHINE SULFATE 2 MG/ML INJ IM PRN ×6 (00:58→22:10)
[2017-06-27] MEDS: SODIUM CHLOR 0.9% 1000 ML INJ 1,000 ML IV SCH ×2 (04:24→21:31)
[2017-06-27 06:07] LABS: BICARBONATE 23.9 MEQ/L (21.0-32.0); POTASSIUM 3.8 MEQ/L (3.5-5.1)
[2017-06-27 06:10] LABS: AUTOMATED NEUTROPHIL # 4.9 TH/MM3 (1.8-7.7); BASOPHIL # 0.1 TH/MM3 (0-0.2); EOSINOPHIL # 0.4 TH/MM3 (0-0.4); EOSINOPHIL % 5.2 % (0.0-4.0); HEMATOCRIT 29.2 % (39.0-51.0); HEMO FLAGS DIFF FINAL; LYMPH % 22.7 % (9.0-44.0); LYMPHOCYTE # 1.8 TH/MM3 (1.0-4.8); MEAN CELL VOLUME 90.3 FL (80.0-100.0); MEAN CORPUSCULAR HEMOGLOBIN 28.9 PG (27.0-34.0); MONO % 10.1 % (0.0-8.0); PLATELET COUNT 336 TH/MM3 (150-450); RED BLOOD COUNT 3.24 MIL/MM3 (4.50-5.90); RED CELL DISTRIBUTION WIDTH 13.5 % (11.6-17.2)
[2017-06-27] MEDS ORDERED: PHARMACY ORDERED LAB ONE (07:45)
--- NOTE | 2017-06-27 08:28 | HHI.PR ---
Subjective Remarks Patient in nad. No n/v/d/c. Says he has pain however controlled with current meds. Thinks erythema edema are improving some. No fever or chills overnight. Can't sleep and wants Ambien says she is using it for sleep at night. No n/v/d/ c. Eating fairly well, better appetite. Objective Vitals Vital Signs Date Time Temp Pulse Resp B/P (MAP) Pulse Ox O2 Delivery O2 Flow Rate FiO2 06/27/17 08:00 97.9 75 18 126/78 (94) 97 06/27/17 04:00 96.7 66 18 116/77 (90) 98 06/27/17 00:00 97.2 60 18 124/76 (92) 98 06/26/17 21:02 20 06/26/17 21:00 60 06/26/17 20:00 96.6 71 20 140/79 (99) 99 06/26/17 16:00 97.4 77 17 108/75 (86) 97 I/O 06/26/17 06/26/17 06/26/17 06/27/17 06/27/17 06/27/17 07:00 15:00 23:00 07:00 15:00 23:00 Intake Total 1480 ml 240 ml 1780 ml Balance 1480 ml 240 ml 1780 ml Intake Oral 480 ml 240 ml 480 ml IV Total 1000 ml 1300 ml # Voids 3 5 3 # Bowel Movements 0 0 0 Result Diagram: 06/27/17 0506 06/27/17 0506 Imaging Last Impressions Upper Extremity MRI 06/26/17 0000 Signed Impressions: Service Date/Time: Monday, June 26, 2017 18:51 - CONCLUSION: Cutaneous disruption 1 cm wide 1 cm deep at the junction of the middle one third and distal one thirds of the arm. There is edema and enhancing inflammatory change extending deep into the soft tissues and a linear strand abutting the bony cortex of the humerus. No evidence of organized fluid collection or abscess formation Rian Mcguire MD Objective Remarks GENERAL: 36 yo male, in bed, appears in nad CARDIOVASCULAR: Regular rate and rhythm without murmurs, gallops, or rubs. RESPIRATORY: Breath sounds equal bilaterally. No accessory muscle use. GASTROINTESTINAL: Abdomen soft, non-tender, nondistended. MUSCULOSKELETAL: No cyanosis, or edema LE. His left arm is bandaged now, edema and induration around his elbow improved, + axilar LAD (status post I&D with biceps laceration). BACK: Nontender without obvious deformity. No CVA tenderness. A/P Problem List: (1) Abscess ICD Code: L02.91 - Cutaneous abscess, unspecified Status: Acute Assessment and Plan 36 year old male admitted with sepsis secondary to left arm abscess and cellulitis. Left Arm Abscess Left Arm Cellulitis Sepsis improving. WBC back to normal. Abscess with phlegmon and cellulitis of LUE, mixed anaerobes. Developed with prolonged exposure in salty muddy senior. Risk for Vibrio as a cause. No eos vibrio on cultures Cont zosyn DC doxy, Levaquin and vancomycin Awaiting surgical evaluation Probiotics ID consulted and ffDr Brooks ID specialist. MRI did not show abscess formation Continue on antibiotics and continue with packing of the wound with daily dressing changes. May need surgery for I&D with possible application of wound vac if symptoms do not continue to improve per ortho. Poss On Thursday if not improvement. He is to work with physical therapy for range of motion of the shoulder and elbow. He is weightbearing as tolerated. Follow wound cultures Sepsis ( leukocytosis, tachycardia on admission, source cellulitis). Improving. IV Hydration Follow on telemetry Follow CBC Monitor vitals Treat infection Hyponatremia, mild. Corrected with IVF. Monitor Na Hypokalemia: replaced. Monitor and replace as need. Insomnia: Add ambien. DVT Prophylaxis Lovenox Discussed with the patient and the nurse. Triny Shepard MD Jun 27, 2017 08:28
[2017-06-27] MEDS: SODIUM CHLORIDE 0.9% FLUSH 10 ML FLUSH IV FLUSH SCH ×2 (09:00→21:30)
[2017-06-27] MEDS: REMOVE OLD PATCH T-DERMAL SCH (09:00)
[2017-06-27] MEDS: LACTOBACILLUS ACIDOPHILUS TAB PO SCH ×3 (09:03→17:42)
[2017-06-27] MEDS: NICOTINE 21 MG/24 HR PATCH T-DERMAL SCH (09:04)
--- NOTE | 2017-06-27 09:34 | PD.ORT.PN ---
Subjective Subjective Remarks L arm painful. Objective Vitals Vital Signs Date Time Temp Pulse Resp B/P (MAP) Pulse Ox O2 Delivery O2 Flow Rate FiO2 06/27/17 08:00 97.9 75 18 126/78 (94) 97 06/27/17 04:00 96.7 66 18 116/77 (90) 98 06/27/17 00:00 97.2 60 18 124/76 (92) 98 06/26/17 21:02 20 06/26/17 21:00 60 06/26/17 20:00 96.6 71 20 140/79 (99) 99 06/26/17 16:00 97.4 77 17 108/75 (86) 97 I/O 06/26/17 06/26/17 06/26/17 06/27/17 06/27/17 06/27/17 07:00 15:00 23:00 07:00 15:00 23:00 Intake Total 1480 ml 240 ml 1780 ml Balance 1480 ml 240 ml 1780 ml Intake Oral 480 ml 240 ml 480 ml IV Total 1000 ml 1300 ml # Voids 3 5 3 # Bowel Movements 0 0 0 Result Diagram: 06/27/17 0506 06/27/17 0506 Objective Remarks Left upper extremity: There is mild erythema and has swelling mainly over medial biceps region. He has packing in the wound over his medial upper arm with mild drainage. this was removed with new packing placed. He has tenderness to his axilla and lymph nodes as well as through the biceps. He has no tenderness to palpation of the elbow. Elbow range of motion is from 45 to 110. Distally he has intact sensation with good capillary refills. He has full extension and flexion of all fingers. Assessment & Plan Assessment and Plan Cellulitis to left upper arm. Patient states that swelling and pain has decreased but continues to have pain, decreased range of motion and decrease in white blood cells but on abx. patient seems to have slight improvement. discussed he still may need surgery for I&D with possible application of wound vac if symptoms do not continue to improve. MRI did not show abscess formation he will continue on antibiotics and continue with packing of the wound with daily dressing changes. He is to work with physical therapy for range of motion of the shoulder and elbow. He is weightbearing as tolerated. Modesto Fuentes Jun 27, 2017 09:34
[2017-06-27] MEDS: ENOXAPARIN SODIUM 40 MG/0.4 ML SYRINGE SQ SCH (13:23)
[2017-06-28] VITALS (7 sets, daily range): BP systolic 107–141; BP diastolic 61–86; PULSE 57–110; RESP 17–20; TEMP 95.9–97.8; O2SAT 94–100
[2017-06-28] MEDS: oxyCODONE/ACETAMINOPHEN 10 MG/325 MG TAB PO PRN ×6 (00:06→23:21)
[2017-06-28] MEDS: ZOLPIDEM TARTRATE 10 MG TAB PO PRN ×2 (00:06→23:22)
[2017-06-28] MEDS: PIPERACIL-TAZO 3.375 GM PREMIX 50 ML IV SCH ×4 (00:06→17:33)
[2017-06-28] MEDS: KETOROLAC TROMETHAMINE 30 MG/ML (IVP) VIAL IV PUSH PRN ×3 (02:57→17:43)
[2017-06-28] MEDS: MORPHINE SULFATE 2 MG/ML INJ IM PRN ×5 (02:58→21:59)
[2017-06-28] MEDS: SODIUM CHLOR 0.9% 1000 ML INJ 1,000 ML IV SCH (06:28)
[2017-06-28] MEDS: NICOTINE 21 MG/24 HR PATCH T-DERMAL SCH (08:14)
[2017-06-28] MEDS: LACTOBACILLUS ACIDOPHILUS TAB PO SCH ×3 (08:14→17:32)
[2017-06-28] MEDS: SODIUM CHLORIDE 0.9% FLUSH 10 ML FLUSH IV FLUSH SCH ×2 (08:17→23:09)
--- NOTE | 2017-06-28 08:22 | PD.ORT.PN ---
Subjective Subjective Remarks Patient reports significant amount of drainage from his left arm and improvement in swelling and pain. Objective Vitals Vital Signs Date Time Temp Pulse Resp B/P (MAP) Pulse Ox O2 Delivery O2 Flow Rate FiO2 06/28/17 04:29 96.7 72 18 135/75 (95) 99 06/28/17 00:29 97.8 110 18 135/83 (100) 94 06/27/17 20:00 63 06/27/17 20:00 97.4 77 18 147/91 (109) 100 06/27/17 16:00 96.9 67 17 131/87 (102) 100 06/27/17 12:00 97.6 71 18 140/86 (104) 100 06/27/17 09:20 87 I/O 06/27/17 06/27/17 06/27/17 06/28/17 06/28/17 06/28/17 07:00 15:00 23:00 07:00 15:00 23:00 Intake Total 1780 ml 840 ml 100 ml Balance 1780 ml 840 ml 100 ml Intake Oral 480 ml 840 ml IV Total 1300 ml 100 ml # Voids 3 4 3 # Bowel Movements 0 1 1 Result Diagram: 06/27/17 0506 06/27/17 0506 Objective Remarks Left upper extremity: There is mild erythema and has swelling mainly over medial biceps region. He has packing in the wound over his medial upper arm with mild drainage. He has tenderness to his axilla and lymph nodes as well as through the biceps. He has no tenderness to palpation of the elbow. Elbow range of motion is from 45 to 110. Distally he has intact sensation with good capillary refills. He has full extension and flexion of all fingers. Assessment & Plan Assessment and Plan Cellulitis to left upper arm. Patient states that swelling and pain has decreased significantly over the last day with persistent drainage. patient seems to have slight improvement. I discussed with the patient that given his MRI does not show abscess formation and he appears to be improving with nonoperative management, we'll continue this for now.. MRI did not show abscess formation he will continue on antibiotics and continue with packing of the wound with daily dressing changes. He is to work with physical therapy for range of motion of the shoulder and elbow. He is weightbearing as tolerated. Jaqueline Dee MD Jun 28, 2017 08:22
[2017-06-28] MEDS: REMOVE OLD PATCH T-DERMAL SCH (09:00)
--- NOTE | 2017-06-28 11:00 | HHI.PR ---
Subjective Remarks Feels better. pain is better controlled. Swelling and erythema is better. Induration is better after applying warm compresses. no n/v/d/c. Denies any chest pain or sob. No fever or chills. Objective Vitals Vital Signs Date Time Temp Pulse Resp B/P (MAP) Pulse Ox O2 Delivery O2 Flow Rate FiO2 06/28/17 10:26 96.8 68 17 134/79 (97) 100 06/28/17 08:21 16 06/28/17 04:29 96.7 72 18 135/75 (95) 99 06/28/17 00:29 97.8 110 18 135/83 (100) 94 06/27/17 20:00 63 06/27/17 20:00 97.4 77 18 147/91 (109) 100 06/27/17 16:00 96.9 67 17 131/87 (102) 100 06/27/17 12:00 97.6 71 18 140/86 (104) 100 I/O 06/27/17 06/27/17 06/27/17 06/28/17 06/28/17 06/28/17 07:00 15:00 23:00 07:00 15:00 23:00 Intake Total 1780 ml 840 ml 100 ml Balance 1780 ml 840 ml 100 ml Intake Oral 480 ml 840 ml IV Total 1300 ml 100 ml # Voids 3 4 3 # Bowel Movements 0 1 1 Result Diagram: 06/27/17 0506 06/27/17 0506 Imaging Last Impressions Upper Extremity MRI 06/26/17 0000 Signed Impressions: Service Date/Time: Monday, June 26, 2017 18:51 - CONCLUSION: Cutaneous disruption 1 cm wide 1 cm deep at the junction of the middle one third and distal one thirds of the arm. There is edema and enhancing inflammatory change extending deep into the soft tissues and a linear strand abutting the bony cortex of the humerus. No evidence of organized fluid collection or abscess formation Rian Mcguire MD Objective Remarks GENERAL: 36 yo male, in bed, appears in nad CARDIOVASCULAR: Regular rate and rhythm without murmurs, gallops, or rubs. RESPIRATORY: Breath sounds equal bilaterally. No accessory muscle use. GASTROINTESTINAL: Abdomen soft, non-tender, nondistended. MUSCULOSKELETAL: No cyanosis, or edema LE. His left arm is bandaged now, edema and induration around his elbow improved, + axilar LAD (status post I&D with biceps laceration). BACK: Nontender without obvious deformity. No CVA tenderness. A/P Problem List: (1) Abscess ICD Code: L02.91 - Cutaneous abscess, unspecified Status: Acute Assessment and Plan 36 year old male admitted with sepsis secondary to left arm abscess and cellulitis. Left Arm Abscess Left Arm Cellulitis Sepsis improving. WBC back to normal. Abscess with phlegmon and cellulitis of LUE, mixed anaerobes. Developed with prolonged exposure in salty muddy senior. Risk for Vibrio as a cause. No eos vibrio on cultures Cont zosyn DC doxy, Levaquin and vancomycin Awaiting surgical evaluation Probiotics ID consulted and ffDr Brooks ID specialist. MRI did not show abscess formation Continue on antibiotics and continue with packing of the wound with daily dressing changes. May need surgery for I&D with possible application of wound vac if symptoms do not continue to improve per ortho. Poss On Thursday if not improvement. He is to work with physical therapy for range of motion of the shoulder and elbow. He is weightbearing as tolerated. Follow wound cultures Sepsis ( leukocytosis, tachycardia on admission, source cellulitis). Improving. IV Hydration Follow on telemetry Follow CBC Monitor vitals Treat infection Hyponatremia, mild. Corrected with IVF. Monitor Na Hypokalemia: replaced. Monitor and replace as need. Insomnia: Add ambien. DVT Prophylaxis Lovenox Discussed with the patient and the nurse. Triny Shepard MD Jun 28, 2017 11:00
[2017-06-28] MEDS: ENOXAPARIN SODIUM 40 MG/0.4 ML SYRINGE SQ SCH (14:00)
[2017-06-29] MEDS: KETOROLAC TROMETHAMINE 30 MG/ML (IVP) VIAL IV PUSH PRN ×4 (00:02→20:41)
[2017-06-29] MEDS: PIPERACIL-TAZO 3.375 GM PREMIX 50 ML IV SCH ×5 (00:03→23:50)
[2017-06-29 00:33] VITALS: BP 151/80; PULSE 77; RESP 18; TEMP 97.4; O2SAT 100
[2017-06-29] MEDS: SODIUM CHLOR 0.9% 1000 ML INJ 1,000 ML IV SCH ×3 (01:25→23:55)
[2017-06-29] MEDS: MORPHINE SULFATE 2 MG/ML INJ IM PRN ×5 (02:27→20:42)
[2017-06-29] MEDS: oxyCODONE/ACETAMINOPHEN 10 MG/325 MG TAB PO PRN ×5 (04:09→21:31)
[2017-06-29 04:41] VITALS: BP 147/94; PULSE 63; RESP 18; TEMP 96.2; O2SAT 100
[2017-06-29 05:55] LABS: AUTOMATED NEUTROPHIL # 3.8 TH/MM3 (1.8-7.7); BASOPHIL # 0.2 TH/MM3 (0-0.2); BASOPHIL % 3.1 % (0.0-2.0); EOSINOPHIL # 0.4 TH/MM3 (0-0.4); EOSINOPHIL % 6.2 % (0.0-4.0); HEMATOCRIT 32.3 % (39.0-51.0); HEMO FLAGS DIFF FINAL; LYMPH % 28.6 % (9.0-44.0); LYMPHOCYTE # 2.1 TH/MM3 (1.0-4.8); MEAN CELL VOLUME 89.2 FL (80.0-100.0); MEAN CORPUSCULAR HEMOGLOBIN 29.8 PG (27.0-34.0); MEAN CORPUSCULAR HGB CONC 33.4 % (32.0-36.0); MONO % 10.1 % (0.0-8.0); PLATELET COUNT 385 TH/MM3 (150-450); RED BLOOD COUNT 3.62 MIL/MM3 (4.50-5.90); RED CELL DISTRIBUTION WIDTH 13.9 % (11.6-17.2); WHITE BLOOD COUNT 7.3 TH/MM3 (4.0-11.0)
[2017-06-29 06:23] LABS: BICARBONATE 27.5 MEQ/L (21.0-32.0); POTASSIUM 3.9 MEQ/L (3.5-5.1)
[2017-06-29 08:00] VITALS: BP 145/90; PULSE 56; RESP 17; TEMP 96.4; O2SAT 98
[2017-06-29] MEDS: LACTOBACILLUS ACIDOPHILUS TAB PO SCH ×3 (08:17→18:44)
[2017-06-29] MEDS: SODIUM CHLORIDE 0.9% FLUSH 10 ML FLUSH IV FLUSH SCH ×2 (08:17→21:00)
[2017-06-29] MEDS: REMOVE OLD PATCH T-DERMAL SCH (08:18)
[2017-06-29] MEDS: NICOTINE 21 MG/24 HR PATCH T-DERMAL SCH (08:18)
--- NOTE | 2017-06-29 08:25 | PD.ORT.PN ---
Subjective Subjective Remarks Patient is awake and alert. Left arm pain is improving. He is still having moderate drainage from the open wound of left arm. Objective Vitals Vital Signs Date Time Temp Pulse Resp B/P (MAP) Pulse Ox O2 Delivery O2 Flow Rate FiO2 06/29/17 08:00 96.4 56 17 145/90 (108) 98 06/29/17 04:41 96.2 63 18 147/94 (111) 100 06/29/17 00:33 97.4 77 18 151/80 (103) 100 06/28/17 20:05 93 06/28/17 20:00 97.2 63 18 141/72 (95) 97 06/28/17 17:50 16 06/28/17 16:00 96.4 57 18 107/61 (76) 97 06/28/17 15:33 16 06/28/17 12:00 95.9 77 20 130/86 (101) 99 06/28/17 11:00 18 06/28/17 10:26 96.8 68 17 134/79 (97) 100 I/O 06/28/17 06/28/17 06/28/17 06/29/17 06/29/17 06/29/17 07:00 15:00 23:00 07:00 15:00 23:00 Intake Total 100 ml 1200 ml 100 ml Balance 100 ml 1200 ml 100 ml Intake Oral 1200 ml IV Total 100 ml 100 ml # Voids 3 4 2 # Bowel Movements 1 0 Result Diagram: 06/29/17 0527 06/29/17 0527 Objective Remarks Left upper extremity: There is mild erythema and has swelling mainly over medial biceps region. He has packing in the wound over his medial upper arm with mild drainage. He has decreased swelling of his axilla and lymph nodes as well as the biceps. He has no tenderness to palpation of the elbow. Elbow range of motion is from 30 to 110. Distally he has intact sensation with good capillary refills. He has full extension and flexion of all fingers. Assessment & Plan Assessment and Plan Cellulitis to left upper arm. Patient states that swelling and pain has decreased significantly over the last day with persistent drainage. patient seems to have slight improvement. I discussed with the patient that given his MRI does not show abscess formation and he appears to be improving with nonoperative management, we'll continue this for now.. MRI did not show abscess formation he will continue on antibiotics and continue with packing of the wound with daily dressing changes. He is to work with physical therapy for range of motion of the shoulder and elbow. Elevate left arm He is weightbearing as tolerated. Lino Falcon MD Jun 29, 2017 08:25
[2017-06-29 12:00] VITALS: BP 126/74; PULSE 76; RESP 16; TEMP 97.8; O2SAT 98
[2017-06-29] MEDS ORDERED: ALPRAZolam 0.5 MG TAB PO ONE (14:15)
[2017-06-29] MEDS: ENOXAPARIN SODIUM 40 MG/0.4 ML SYRINGE SQ SCH (14:16)
--- NOTE | 2017-06-29 14:40 | HHI.PR ---
Subjective Remarks Patient complains of anxiety today. Pain is not quite controlled. Decrease amount of discharge. No other new complaints. Objective Vital Signs Date Time Temp Pulse Resp B/P (MAP) Pulse Ox O2 Delivery O2 Flow Rate FiO2 06/29/17 12:00 97.8 76 16 126/74 (91) 98 06/29/17 08:00 96.4 56 17 145/90 (108) 98 06/29/17 04:41 96.2 63 18 147/94 (111) 100 06/29/17 00:33 97.4 77 18 151/80 (103) 100 06/28/17 20:05 93 06/28/17 20:00 97.2 63 18 141/72 (95) 97 06/28/17 17:50 16 06/28/17 16:00 96.4 57 18 107/61 (76) 97 06/28/17 15:33 16 I/O 06/28/17 06/28/17 06/28/17 06/29/17 06/29/17 06/29/17 07:00 15:00 23:00 07:00 15:00 23:00 Intake Total 100 ml 1200 ml 100 ml Balance 100 ml 1200 ml 100 ml Intake Oral 1200 ml IV Total 100 ml 100 ml # Voids 3 4 2 # Bowel Movements 1 0 Result Diagram: 06/29/1752606/29/17526 Objective Remarks GENERAL: NAD, A&Ox3 HEAD: Normocephalic. NECK: Supple, trachea midline. No lymphadenopathy. EYES: No scleral icterus. No injection or drainage. CARDIOVASCULAR: Regular rate and rhythm without murmurs, gallops, or rubs. RESPIRATORY: Breath sounds equal bilaterally. No accessory muscle use. GASTROINTESTINAL: Abdomen soft, non-tender, nondistended. MUSCULOSKELETAL: No cyanosis. Induration at the posterior aspect of the arm. 2 cm incision medial aspect of bicep. SKIN: Warm and dry. NEURO: No focal neurological deficitis. A/P Problem List: (1) Abscess ICD Code: L02.91 - Cutaneous abscess, unspecified Status: Acute Assessment and Plan Assessment and Plan 36 year old male admitted with sepsis secondary to left arm abscess and cellulitis. Left Arm Abscess Left Arm Cellulitis No Vibrio on cultures Continue zosyn ID Following Surgery Following Continue as needed pain treatments Anxiety PRN Xanax Sepsis Resolved Hypokalemia Follow and replace as needed Insomnia Continue Ambien DVT Prophylaxis Harvey Mosley MD Jun 29, 2017 14:40
[2017-06-29 16:00] VITALS: BP 121/63; PULSE 65; RESP 18; TEMP 97.1; O2SAT 99
[2017-06-29 20:25] VITALS: BP 139/83; PULSE 74; RESP 16; TEMP 97.6; O2SAT 99
[2017-06-29] MEDS: ZOLPIDEM TARTRATE 10 MG TAB PO PRN (23:12)
[2017-06-29] MEDS: ALPRAZolam 0.25 MG TAB PO PRN (23:12)
[2017-06-30 00:40] VITALS: BP 131/78; PULSE 69; RESP 18; TEMP 96.3; O2SAT 99
[2017-06-30] MEDS: MORPHINE SULFATE 2 MG/ML INJ IM PRN ×4 (00:58→14:55)
[2017-06-30] MEDS: oxyCODONE/ACETAMINOPHEN 10 MG/325 MG TAB PO PRN ×4 (02:06→16:03)
[2017-06-30] MEDS: KETOROLAC TROMETHAMINE 30 MG/ML (IVP) VIAL IV PUSH PRN ×2 (06:25→13:11)
[2017-06-30] MEDS: PIPERACIL-TAZO 3.375 GM PREMIX 50 ML IV SCH ×2 (06:26→11:51)
[2017-06-30 08:00] VITALS: BP 125/79; PULSE 69; RESP 12; TEMP 96.6; O2SAT 99
[2017-06-30] MEDS ORDERED: ALPRAZolam 0.5 MG TAB PO SCH (09:00)
[2017-06-30] MEDS: LACTOBACILLUS ACIDOPHILUS TAB PO SCH ×2 (09:18→14:50)
[2017-06-30] MEDS: REMOVE OLD PATCH T-DERMAL SCH (09:22)
[2017-06-30] MEDS: NICOTINE 21 MG/24 HR PATCH T-DERMAL SCH (09:22)
[2017-06-30] MEDS: SODIUM CHLORIDE 0.9% FLUSH 10 ML FLUSH IV FLUSH SCH (09:24)
[2017-06-30] MEDS: ALPRAZolam 0.25 MG TAB PO PRN (11:58)
[2017-06-30 12:00] VITALS: BP 120/69; PULSE 69; RESP 12; TEMP 96.9; O2SAT 99
[2017-06-30] MEDS: ENOXAPARIN SODIUM 40 MG/0.4 ML SYRINGE SQ SCH (14:52)
[2017-06-30 16:00] VITALS: BP 127/70; PULSE 70; RESP 18; TEMP 96.8; O2SAT 100
--- NOTE | 2017-06-30 16:03 | HHI.PR ---
Subjective Remarks Continued improvement of patient's left arm and forearm. No fevers. Drainage is still present at the site of the wound. Pain decreasing. Objective Vital Signs Date Time Temp Pulse Resp B/P (MAP) Pulse Ox O2 Delivery O2 Flow Rate FiO2 06/30/17 12:00 96.9 69 12 120/69 (86) 99 06/30/17 08:00 96.6 69 12 125/79 (94) 99 06/30/17 00:40 96.3 69 18 131/78 (95) 99 06/29/17 20:47 18 06/29/17 20:25 97.6 74 16 139/83 (101) 99 I/O 06/29/17 06/29/17 06/29/17 06/30/17 06/30/17 06/30/17 07:00 15:00 23:00 07:00 15:00 23:00 Intake Total 100 ml 2200 ml Balance 100 ml 2200 ml Intake Oral 2200 ml IV Total 100 ml # Voids 2 5 # Bowel Movements 1 Result Diagram: 06/29/1752606/29/17526 Objective Remarks GENERAL: NAD, A&Ox3 HEAD: Normocephalic. NECK: Supple, trachea midline. No lymphadenopathy. EYES: No scleral icterus. No injection or drainage. CARDIOVASCULAR: Regular rate and rhythm without murmurs, gallops, or rubs. RESPIRATORY: Breath sounds equal bilaterally. No accessory muscle use. GASTROINTESTINAL: Abdomen soft, non-tender, nondistended. MUSCULOSKELETAL: No cyanosis. Induration at the posterior aspect of the arm. 2 cm incision medial aspect of bicep. SKIN: Warm and dry. NEURO: No focal neurological deficitis. A/P Problem List: (1) Abscess ICD Code: L02.91 - Cutaneous abscess, unspecified Status: Acute Assessment and Plan Assessment and Plan 36 year old male admitted with sepsis secondary to left arm abscess and cellulitis. Considering discharge tomorrow if cleared by orthopedic surgery. Left Arm Abscess Left Arm Cellulitis No Vibrio on cultures Continue zosyn ID Following Surgery Following Continue as needed pain treatments Anxiety PRN Xanax Sepsis Resolved Hypokalemia Follow and replace as needed Insomnia Continue Ambien DVT Prophylaxis Lovenox Discharge planning Potential discharge tomorrow if cleared by orthopedic surgery Harvey Price MD Jun 30, 2017 16:03
[2017-06-30] MEDS ORDERED: AUGM500T7 PO ×2 (16:45→17:45)
--- NOTE | 2017-06-30 16:47 | HHI.IDPN ---
Subjective Subjective Remarks feels much better no fever Antibiotics zosyn Allergies: Coded Allergies: No Known Allergies (Verified Allergy, Unknown, 06/24/17) Objective . Vital Signs Date Time Temp Pulse Resp B/P (MAP) Pulse Ox O2 Delivery O2 Flow Rate FiO2 06/30/17 16:00 96.8 70 18 127/70 (89) 100 06/30/17 12:00 96.9 69 12 120/69 (86) 99 06/30/17 08:00 96.6 69 12 125/79 (94) 99 06/30/17 00:40 96.3 69 18 131/78 (95) 99 06/29/17 20:47 18 06/29/17 20:25 97.6 74 16 139/83 (101) 99 . Laboratory Tests Test 06/29/17 05:27 White Blood Count 7.3 TH/MM3 Red Blood Count 3.62 MIL/MM3 Hemoglobin 10.8 GM/DL Hematocrit 32.3 % Mean Corpuscular Volume 89.2 FL Mean Corpuscular Hemoglobin 29.8 PG Mean Corpuscular Hemoglobin Concent 33.4 % Red Cell Distribution Width 13.9 % Platelet Count 385 TH/MM3 Mean Platelet Volume 8.1 FL Neutrophils (%) (Auto) 52.0 % Lymphocytes (%) (Auto) 28.6 % Monocytes (%) (Auto) 10.1 % Eosinophils (%) (Auto) 6.2 % Basophils (%) (Auto) 3.1 % Neutrophils # (Auto) 3.8 TH/MM3 Lymphocytes # (Auto) 2.1 TH/MM3 Monocytes # (Auto) 0.7 TH/MM3 Eosinophils # (Auto) 0.4 TH/MM3 Basophils # (Auto) 0.2 TH/MM3 CBC Comment DIFF FINAL Differential Comment Laboratory Tests Test 06/29/17 05:27 Blood Urea Nitrogen 11 MG/DL Creatinine 0.64 MG/DL Random Glucose 98 MG/DL Calcium Level 8.9 MG/DL Sodium Level 142 MEQ/L Potassium Level 3.9 MEQ/L Chloride Level 106 MEQ/L Carbon Dioxide Level 27.5 MEQ/L Anion Gap 9 MEQ/L Estimat Glomerular Filtration Rate 141 ML/MIN Physical Exam CONSTITUTIONAL/GENERAL: This is an adequately nourished patient, in no apparent distress. TUBES/LINES/DRAINS: SKIN: No jaundice, rashes, or lesions. MUSCULOSKELETAL: STATUS LOCALIS: L upper arm with dressing in place, intact markedly improved induration, swelling minima tenderness to palpation NEUROLOGICAL: Awake and alert. non focal Assessment & Plan Remarks Abscess wiith phlegmone and cellulitis of LUE, mixed anaerobs + salt water exposure, no e/o vibrio on cultures dc zosyn -start augmentin 500 mg tid x 1 more week OK to dc home from Varsha Davis Dr, MD Jun 30, 2017 16:47
[2017-06-30] MEDS ORDERED: OXYC1TAB36 PO (16:51)
[2017-06-30] MEDS ORDERED: LACT PO (16:51)
[2017-06-30] MEDS ORDERED: ALPR.25 PO (16:51)
[2017-06-30] MEDS ORDERED: CURIMIS TOPICAL (16:56)
[2017-06-30] MEDS ORDERED: [UNRECOGNIZED DRUG - REMARK] (16:56)
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
[2017-06-30] MEDS ORDERED: AMOXICILLIN/CLAVULANATE K 500 MG TAB PO SCH (22:00)
[2017-07-01] MEDS ORDERED: OXYC1TAB63 PO (10:28)
== END 2017-06-30 18:48 | disposition home health service (06) | DRG 872 ==
LOC: NEPD 10:11 → NEDA 13:57 → N07B 17:08
PROVIDERS: ADMIT Hospitalist; ATTEND Hospitalist
PROC: 0H9EXZZ Drainage of Left Lower Arm Skin, External Approach (ICD-10-PCS; principal; 2017-06-24)
DX: A41.9 Sepsis, unspecified organism (principal); E87.1 Hypo-osmolality and hyponatremia; L02.414 Cutaneous abscess of left upper limb; L03.114 Cellulitis of left upper limb; F17.210 Nicotine dependence, cigarettes, uncomplicated; E87.6 Hypokalemia; F41.9 Anxiety disorder, unspecified; G47.00 Insomnia, unspecified; Z86.19 Personal history of other infectious and parasitic diseases; Z87.820 Personal history of traumatic brain injury
CPT/HCPCS: 10061; 73220; 80048; 80053; 80202; 85007; 85025; 85027; 87070; 87185; 87205; 87641; 96365; 96372; 96375; A9579; J1170; J1650; J1885; J1956; J2270; J2543; J3010; J3370; J7030; J7040; J7050